=== PATIENT | male | born 1990 | race Caucasian/White ===

== ENCOUNTER 2025-03-11 18:37 | Inpatient (IN) | payer OTHER ==
[2025-03-11 19:09] VITALS: BMI 26.7
[2025-03-11] MEDS ORDERED: methaDONE HCL 10 MG TABLET (FOR DETOX USE ONLY) PO PRN (19:26)
[2025-03-11] MEDS ORDERED: BENZOCAINE/MENTHOL (CHLORASEPTIC ) LOZENGE MM PRN (19:31)
[2025-03-11] MEDS ORDERED: POLYETHYLENE GLYCOL (HEALTHYLAX) 3350 17 GM PACKET PO PRN (19:31)
[2025-03-11] MEDS ORDERED: LOPERAMIDE HCL 2 MG CAPSULE PO PRN (19:31)
[2025-03-11] MEDS ORDERED: NICOTINE POLACRILEX 2 MG LOZENGE BC PRN (19:31)
[2025-03-11] MEDS ORDERED: MAG HYDROX/AL HYDROX/SIMETH 30 ML UNIT-DOSE CUP PO PRN (19:31)
[2025-03-11] MEDS ORDERED: IBUPROFEN 400 MG TABLET (FP) PO PRN (19:31)
[2025-03-11] MEDS ORDERED: BENZONATATE 200 MG CAPSULE PO PRN (19:31)
[2025-03-11] MEDS ORDERED: ACETAMINOPHEN 325 MG TABLET (FP) PO PRN (19:31)
[2025-03-11] MEDS ORDERED: guaiFENesin 600 MG TABLET.ER (FP) PO PRN (19:31)
[2025-03-11] MEDS ORDERED: DICYCLOMINE HCL 10 MG CAPSULE PO PRN (19:31)
[2025-03-11] MEDS ORDERED: ONDANSETRON *ODT* 4 MG TABLET SL PRN (19:31)
[2025-03-11] MEDS ORDERED: NICOTINE POLACRILEX 2 MG GUM BUC PRN (19:31)
[2025-03-11] MEDS ORDERED: BISMUTH SUBSALICYLATE 524 MG/30 ML PO PRN (19:31)
[2025-03-11] MEDS ORDERED: NALOXONE (NARCAN) HCL 4 MG/0.1 ML SPRAY NS PRN (19:31)
[2025-03-11] MEDS: THIAMINE 100 MG TABLET PO SCH (22:13)
[2025-03-11] MEDS: MELATONIN 5 MG TABLETS PO SCH (22:13)
[2025-03-11] MEDS: cloNIDine HCL 0.1 MG TABLET PO PRN (22:13)
[2025-03-12] MEDS: METHOCARBAMOL 500 MG TABLET PO PRN (06:07)
[2025-03-12] MEDS: IBUPROFEN 600 MG TABLET (FP) PO PRN (06:07)
[2025-03-12] MEDS: PRENATAL VITAMINS W/ FOLIC ACID TABLET (FP) PO SCH (09:24)
[2025-03-12] MEDS: methaDONE HCL 10 MG TABLET (FOR DETOX USE ONLY) PO ONE (09:24)
[2025-03-12] MEDS: diazePAM 5 MG TABLET PO ONE (18:34)
[2025-03-12] MEDS ORDERED: methaDONE HCL 10 MG TABLET PO PRN (19:36)
[2025-03-13] MEDS: diazePAM 5 MG TABLET PO PRN (01:37)
[2025-03-13] MEDS: methaDONE 40 MG, methaDONE 10 MG PO ONE (09:50)
[2025-03-13] MEDS: hydrOXYzine PAMOATE 50 MG CAPSULE (FP) PO PRN (17:18)
[2025-03-13] MEDS: SUVOREXANT 10 MG TABLET PO PRN (22:12)
[2025-03-14] MEDS: MAGNESIUM HYDROX 2400MG/30ML ORAL SUSPENSION 30 ML CUP PO PRN (02:01)
[2025-03-14] MEDS: cloNIDine HCL 0.1 MG TABLET PO PRN (09:00)
[2025-03-14] MEDS: methaDONE 40 MG, methaDONE 20 MG PO ONE (09:02)
[2025-03-14] MEDS ORDERED: methaDONE HCL 10 MG TABLET (FOR DETOX USE ONLY) PO ONE (10:00)
[2025-03-14] MEDS: TRIAMCINOLONE ACET 0.1% OINT 15 GM TUBE TP SCH (11:00)
[2025-03-15] MEDS: methaDONE 40 MG, methaDONE 30 MG PO ONE (09:06)
[2025-03-15 12:52] VITALS: RESP 18
[2025-03-15 16:45] VITALS: TEMP 97.8
[2025-03-15 20:35] VITALS: BP 110/93; PULSE 75
[2025-03-16] MEDS ORDERED: methaDONE HCL 40 MG DISPERSABLE TABLET PO ONE (10:00)
[2025-03-16] MEDS ORDERED: methaDONE HCL 10 MG TABLET (FOR DETOX USE ONLY) PO ONE (10:00)
[2025-03-17] MEDS ORDERED: methaDONE 80 MG, methaDONE 10 MG PO ONE (10:00)
== END 2025-03-15 20:24 | disposition left against medical advice (07) | DRG 770 ==
LOC: YASAS 18:37 → Y3N 20:02
PROVIDERS: ADMIT Allergy & Immunology; ATTEND Allergy & Immunology
PROC: HZ2ZZZZ Detoxification Services for Substance Abuse Treatment (ICD-10-PCS; principal; 2025-03-11)
DX: F11.23 Opioid dependence with withdrawal (principal); F12.20 Cannabis dependence, uncomplicated; F17.210 Nicotine dependence, cigarettes, uncomplicated; L30.9 Dermatitis, unspecified
CPT/HCPCS: 80305; 80307; 93005; 93010